=== PATIENT | male | born 1995 | race Caucasian/White ===

== ENCOUNTER 2020-12-22 20:17 | Emergency (ER) | payer SELFPAY ==
[2020-12-23] MEDS ORDERED: NAPROXEN500 MG PO (23:57)
== END 2020-12-22 20:50 | disposition left against medical advice (07) ==
LOC: ER1 20:17
DX: Z53.21 Procedure and treatment not carried out due to patient leaving prior to being seen by health care provider (principal)

== ENCOUNTER 2020-12-23 22:38 | Emergency (ER) | payer SELFPAY ==
[2020-12-23] MEDS ORDERED: NAPROXEN500 MG PO (23:57)
== END 2020-12-24 00:10 | disposition home or self-care (01) ==
LOC: ER1 22:38
DX: M25.522 Pain in left elbow (principal); M79.89 Other specified soft tissue disorders
CPT/HCPCS: 73080; 99283

== ENCOUNTER 2021-01-01 04:52 | Emergency (ER) | payer SELFPAY ==
[~2021-01-01 04:52] MED LIST: NAPROXEN500 MG PO
== END 2021-01-01 05:46 | disposition home or self-care (01) ==
LOC: ER1 04:52
DX: M79.651 Pain in right thigh (principal); Z88.0 Allergy status to penicillin; Z88.5 Allergy status to narcotic agent
CPT/HCPCS: 99283

== ENCOUNTER 2021-01-17 00:44 | Emergency (ER) | payer SELFPAY | END 2021-01-17 01:19 | disposition home or self-care (01) | LOC: ER1 00:44 | DX: R52 Pain, unspecified (principal); R43.9 Unspecified disturbances of smell and taste; Z88.0 Allergy status to penicillin; Z88.5 Allergy status to narcotic agent; Z20.822 Contact with and (suspected) exposure to COVID-19 | CPT/HCPCS: 99283; U0003 ==

== ENCOUNTER 2021-05-26 20:58 | Emergency (ER) | payer OTHER ==
[2021-05-26 22:35] LABS: HEMOGLOBIN 16.6 gm/dl (14.0-17.5); RED BLOOD COUNT 5.74 M/UL (4.20-5.50); WHITE BLOOD COUNT 10.7 K/UL (4.5-11.0)
[2021-05-26 23:03] LABS: BUN/CREATININE RATIO 13 (0-10)
== END 2021-05-27 03:29 | disposition admitted as inpatient to this hospital (09) ==
LOC: ER1 20:58
PROVIDERS: Emergency Medicine
DX: R10.9 Unspecified abdominal pain (principal)
CPT/HCPCS: 80053; 81001; 83690; 85025; 99284